=== PATIENT | female | born 1945 | race Hispanic/Latino ===

== ENCOUNTER 2018-03-06 05:22 | Observation (INO) | payer OTHER ==
[2018-03-05 13:17] LABS: BASOPHILS # (AUTO) 0.1 (0.0-0.1); BASOPHILS % 0.8 % (0.0-1.0); EOSINOPHILS # (AUTO) 0.1 (0.0-0.4); EOSINOPHILS % 1.2 % (0.0-6.0); HEMATOCRIT 40.6 % (34.2-44.1); HEMOGLOBIN 14.2 g/dL (12.0-16.0); LYMPHOCYTES % 34.5 % (18.0-39.1); MEAN CORPUSCULAR HEMOGLOBIN 30.9 pg (28-32); MEAN CORPUSCULAR VOLUME 88.5 fL (81-99); MONOCYTES # (AUTO) 0.4 (0.2-0.8); MONOCYTES % 7.3 % (4.4-11.3); NEUTROPHILS # (AUTO) 3.3 (2.1-6.9); NEUTROPHILS % 56.2 % (38.7-80.0); PLATELET COUNT 254 x10e3/uL (140-360); RED BLOOD COUNT 4.59 x10e6/uL (3.6-5.1); RED CELL DISTRIBUTION WIDTH 12.9 % (11.7-14.4)
--- NOTE | 2018-03-05 13:37 | Diagnostic Imaging Report ---
EXAMINATION: CHEST 2 VIEWS COMPARISON: None FINDINGS: TUBES and LINES: None. LUNGS: Lungs are well inflated. Lungs are clear. There is no evidence of pneumonia or pulmonary edema. PLEURA: No pleural effusion or pneumothorax. HEART AND MEDIASTINUM: The cardiomediastinal silhouette is unremarkable. Mild atherosclerotic aortic calcifications. BONES AND SOFT TISSUES: No acute osseous lesion. Soft tissues are unremarkable. UPPER ABDOMEN: No free air under the diaphragm. IMPRESSION: No acute radiographic abnormality. Signed by: Dr. Haroldo Jung MD on 03/05/2018 1:34 PM
[2018-03-05 13:39] LABS: ALANINE AMINOTRANSFERASE 31 IU/L (0-55); ALBUMIN/GLOBULIN RATIO 1.1 (0.8-2.0); ALKALINE PHOSPHATASE 79 IU/L (40-150); ANION GAP 13.1 mmol/L (8-16); BLOOD UREA NITROGEN 13 mg/dL (7-26); BUN/CREATININE RATIO 18 (6-25); CALCIUM 9.6 mg/dL (8.4-10.2); CARBON DIOXIDE 26 mmol/L (22-29); CHLORIDE 106 mmol/L (98-107); CREATININE, SERUM 0.73 mg/dL (0.57-1.11); EST GLOMERULAR FILTRATION RATE > 60 ML/MIN (60-); GLUCOSE 102 mg/dL (74-118); POTASSIUM 4.1 mmol/L (3.5-5.1); SODIUM 141 mmol/L (136-145)
[~2018-03-06] VITALS: Ht 152.4 cm; Wt 78.0 kg
[~2018-03-06 05:22] MED LIST: LEVOTHYROXINE100 MC1 PO; ZESTRIL20 MG PO
--- OUTSIDE RECORDS SUMMARY | 2018-03-06 05:24 | XMS REPORT ---
Author [facility] Address Unknown Phone Unavailable Care Team Providers Care State Fire Marshal Name Role Phone RITO FRANCO Unavailable Unavailable Problems This patient has no known problems. Allergies, Adverse Reactions, Alerts This patient has no known allergies or adverse reactions. Medications This patient has no known medications. Results Test Description Test Time Test Comments Text Results Atomic Results Result Comments CHEST 2 VIEWS 2018-03-05 13:32:00 [place] [id number] Patient Name: CRISTINO ALEJANDRA MR #: [id number] : 1945 Age/Sex: 72/F Req #: [id number] Adm Physician: Ordered by: RITO FRANCO MD Report #: [id number] Location: OR Room/Bed: Procedure: [id number] DX/CHEST 2 VIEWS Exam Date: Exam Time: REPORT STATUS: Signed EXAMINATION: CHEST 2 VIEWS COMPARISON: None FINDINGS: TUBES and LINES: None. LUNGS: Lungs are well inflated. Lungs are clear. There is no evidence of pneumonia or pulmonary edema. PLEURA: No pleural effusion or pneumothorax. HEART AND MEDIASTINUM: The cardiomediastinal silhouette is unremarkable. Mild atherosclerotic aortic calcifications. BONES AND SOFT TISSUES: No acute osseous lesion. Soft tissues are unremarkable. UPPER ABDOMEN: No free air under the diaphragm. IMPRESSION: No acute radiographic abnormality. Signed by: Dr. George Munoz MD on 03/05/2018 1:34 PM Dictated By: GEORGE MUNOZ MD [id number] Transcribed By: CARMELINA on 03/05/18 1338 COPY TO: RITO FRANCO MD
[2018-03-06] MEDS ORDERED: CEFAZOLIN SOD 2 GM/D5W 50ML 50 ML IV ONE (05:59)
[2018-03-06] MEDS ORDERED: BUPIVACAINE 0.25%/EPI 30ML SDV INJ ONE ×2 (07:12→08:55)
[2018-03-06] MEDS ORDERED: ESTROGENS CONJUGATED VAGINAL CR 45 GM TUBE PV ONE (07:12)
[2018-03-06] MEDS ORDERED: BUPIVACAINE HCL 0.5% INJ 30 ML VIAL INJ ONE (07:12)
[2018-03-06] MEDS ORDERED: BUPIVACAINE HCL 0.5% 10ML MPF VIAL INJ ONE (08:55)
[2018-03-06] MEDS: LACTATED RINGER'S 1,000 ML IV SCH ×3 (09:26→21:00)
[2018-03-06] MEDS ORDERED: DOCUSATE SODIUM 100 MG CAP PO PRN (09:30)
[2018-03-06] MEDS ORDERED: HYDROCODONE/APAP 5MG-325MG TAB PO PRN (09:30)
[2018-03-06] MEDS ORDERED: ACETAMINOPHEN 325 MG TAB PO PRN (09:30)
[2018-03-06] MEDS ORDERED: ONDANSETRON HCL INJ 2 MG/ML VIAL IV PRN (09:30)
[2018-03-06] MEDS ORDERED: MEPERIDINE HCL INJ 25 MG/ML VIAL IV PRN (09:30)
[2018-03-06] MEDS ORDERED: DIPHENHYDRAMINE HCL 25 MG CAP PO PRN (09:30)
[2018-03-06] MEDS ORDERED: FENTANYL CITRATE/PF 100MCG/2 ML INJ ONE ×2 (09:59→19:04)
[2018-03-06] MEDS ORDERED: ONDANSETRON HCL INJ 2 MG/ML VIAL ONE ×2 (10:07→19:25)
[2018-03-06 11:04] VITALS: BP 145/68
[2018-03-06 11:28] VITALS: BP 144/65
--- NOTE | 2018-03-06 13:13 | Operative Report ---
DATE OF PROCEDURE: March 06, 2018 PREOPERATIVE DIAGNOSES 1. Pelvic organ prolapse. 2. Genuine urinary stress incontinence. POSTOPERATIVE DIAGNOSES 1. Pelvic organ prolapse. 2. Genuine urinary stress incontinence. PROCEDURES PERFORMED 1. Rectovaginal hysterectomy. 2. Anterior repair. 3. Posterior repair. 4. Sacrospinous colpopexy. 5. Transobturator tape. 6. Cystoscopy. PRODUCT DEVELOPMENT MANAGER: Dr. Williamson. COMPLICATIONS: None. ESTIMATED BLOOD LOSS: 50 mL. DETAILS OF PROCEDURE: The patient was taken to the OR where general anesthesia was achieved. She was prepped and draped in the normal sterile fashion and placed in the dorsal lithotomy position. After examination under anesthesia, a weighted speculum was placed inside of the vagina, and the cervix was grasped with a single-toothed tenaculum. The subvaginal tissue was injected with Marcaine with epinephrine 0.25%, 20 mL around the cervix. A circumferential vaginal skin incision was made with a scalpel right at the bladder line around the cervix, and the bladder was dissected off the underlying tissue using curved Wells scissors and gentle sweeps of a Ray-Raz wrapped around the index finger. The pouch of Neville was opened with Metzenbaum scissors, and the weighted speculum was advanced into the pouch of Neville. Using the LigaSure, the uterosacral was ligated, cut, and pedicles were secured. The same was repeated on the other side. Uterine vessels were clamped and cut. The apex of the broad ligament was clamped and cut on both sides with the LigaSure, and vessels were occluded and the pedicle was cut. The uterus was freed and sent to pathology. Following this, inspection of the pedicles showed good hemostasis. The anterior wall of the vagina was held with Metzenbaum scissors, and the vagina was dissected off the underlying bladder using Metzenbaum scissors push-spread technique, and the vagina was opened in the midline anteriorly with the Metzenbaum scissors. Two flaps of the vagina were dissected off the underlying bladder using both sharp and blunt dissection. Pelvic floor was pierced, and the ischial spine and sacrospinous ligament were palpated on each side. A Capio needle holcomb was used to throw a Vicryl suture on the sacrospinous ligament in the middle. The same was repeated on the other side. The other end was hitched to the vaginal vault. Following this, the pubocervical ligaments on each side were approximated using Vicryl 2-0 sutures. The excess vaginal skin was trimmed off using curved Wells scissors, and the vagina was closed with continuous interlocking stitches of Vicryl 2-0. Following this, the subvaginal tissue was injected with Marcaine with epinephrine 0.25% at the middle third of the urethra, and a vaginal skin incision was made with a scalpel. The vagina was dissected off the urethra and bladder using Metzenbaum scissors using push-spread technique towards the anterior pubic ramus. The same was repeated on the other side. The entry points on each side were marked with a marker pen at the level of the clitoris and the intercrural line. Stab wounds were made with the scalpel. Using the Obtryx trocar, the trocar was inserted, palpated and guided to the outside of the vaginal wound. Vaginal tape was threaded on the trocar and withdrawn, and on each side the tape was left flat on the mid urethra. Cystoscopy was performed and showed a normal bladder and urethra using the 70-degree cystoscope. Following this, the plastic covers for the tape were removed and the excess tape was trimmed off at the entry points. The vagina was closed with interlocking sutures of Vicryl 0. Posterior repair was performed where 2 Allis clamps were applied at the mucocutaneous junction about 1 cm from the fourchette. Vaginal tissue in the middle was removed, and the vagina was dissected off the perineum using Metzenbaum scissors and opened in the midline using the same instruments. The 2 flaps of the vagina were dissected off the underlying muscles using both sharp and blunt dissection. Following this, the levator ani were approximated using Vicryl 2-0. The excess vaginal skin posteriorly was removed with curved Wells scissors, and the vagina was closed with interlocking stitches of Vicryl 0. The perineum was closed with subcutaneous Vicryl 2-0. Suction irrigation of the vagina using warm saline. A vaginal pack was inserted. Patient tolerated the procedure well. Lap, instrument and needle count was correct x2 at the end of the procedure. Job#: [id number]
[2018-03-06 15:27] VITALS: BP 151/66
[2018-03-06] MEDS: KETOROLAC TROMETHAMINE 30 MG/ML VIAL IM PRN (18:21)
[2018-03-06] MEDS ORDERED: DEXAMETHASONE SOD PHOS INJ 4 MG/ML VIAL ONE (19:25)
[2018-03-06] MEDS ORDERED: GLYCOPYRROLATE INJ 1MG/ 5 ML SYR ONE (19:25)
[2018-03-06] MEDS ORDERED: LIDOCAINE HCL 2% LOCAL INJ 5 ML SDV VIAL INJ ONE (19:25)
[2018-03-06] MEDS ORDERED: NEOSTIGMINE 5 MG/5ML SYR ONE (19:25)
[2018-03-06] MEDS ORDERED: SEVOFLURANE INHAL SOLN 250 ML PEN BTL ONE (19:25)
[2018-03-06] MEDS ORDERED: ROCURONIUM BROMIDE 10 MG/ML 5ML VIAL ONE (19:25)
[2018-03-06] MEDS ORDERED: KETOROLAC TROMETHAMINE 30 MG/ML VIAL ONE (19:25)
[2018-03-06] MEDS ORDERED: PROPOFOL IV EMULSION 10 MG/ML 20 ML VIAL ONE (19:25)
[2018-03-06 20:00] VITALS: BP 142/62
[2018-03-07] VITALS (9 sets, daily range): BP systolic 128–142; BP diastolic 59–63
[2018-03-07] MEDS: KETOROLAC TROMETHAMINE 30 MG/ML VIAL IM PRN (02:59)
[2018-03-07 05:40] LABS: BASOPHILS % 0.4 % (0.0-1.0); EOSINOPHILS % 0.1 % (0.0-6.0); HEMATOCRIT 32.6 % (34.2-44.1); HEMOGLOBIN 11.3 g/dL (12.0-16.0); LYMPHOCYTES # (AUTO) 2.1 (1.0-3.2); LYMPHOCYTES % 23.2 % (18.0-39.1); MEAN CORPUSCULAR HEMOGLOBIN 30.5 pg (28-32); MEAN CORPUSCULAR HGB CONC 34.7 g/dL (31-35); MEAN CORPUSCULAR VOLUME 87.9 fL (81-99); MONOCYTES # (AUTO) 0.8 (0.2-0.8); MONOCYTES % 8.6 % (4.4-11.3); NEUTROPHILS # (AUTO) 6.1 (2.1-6.9); NEUTROPHILS % 67.4 % (38.7-80.0); PLATELET COUNT 224 x10e3/uL (140-360); RED BLOOD COUNT 3.71 x10e6/uL (3.6-5.1); RED CELL DISTRIBUTION WIDTH 12.9 % (11.7-14.4)
[2018-03-07] MEDS: LACTATED RINGER'S 1,000 ML IV SCH (09:26)
[2018-03-07] MEDS ORDERED: TYLENOL WITH C1 EACH PO ×2 (14:17→14:18)
== END 2018-03-07 15:01 | disposition home or self-care (01) ==
LOC: OR 05:22 → PACU V 09:30 → IMCU 10:27
PROVIDERS: ADMIT Obstetrics & Gynecology; ATTEND Obstetrics & Gynecology
DX: N81.89 Other female genital prolapse (principal); N39.3 Stress incontinence (female) (male); Z01.810 Encounter for preprocedural cardiovascular examination; Z01.812 Encounter for preprocedural laboratory examination; Z01.811 Encounter for preprocedural respiratory examination; I10 Essential (primary) hypertension; E03.9 Hypothyroidism, unspecified
CPT/HCPCS: 36415 ×2; 57260; 57288; 58260; 71046; 80053; 85025 ×2; 88305; 93005; C1781; G0378 ×2; J0690; J1100; J1885 ×2; J2001; J2405; J2704; J3490; J7120 ×2; 88307